=== PATIENT | female | born 1990 | race Caucasian/White ===

== ENCOUNTER 2018-05-17 22:05 | Inpatient (IN) ==
[2018-05-18] MEDS ORDERED: Morphine Sulfate Inj 2 MG/ML Vial IV.PUSH PRN (00:10)
[2018-05-18] MEDS ORDERED: Acetaminophen 325 MG Tablet PO PRN (00:11)
[2018-05-18] MEDS ORDERED: Temazepam 15 MG Capsule PO PRN (00:11)
[2018-05-18] MEDS ORDERED: Bisacodyl 10 MG Supp RECTAL PRN (00:11)
[2018-05-18] MEDS ORDERED: Morphine Inj 4 MG/ML Vial IV.PUSH PRN (00:17)
[2018-05-18] MEDS: Sod Chloride 0.9% Inj 1,000 ML IV.CONT SCH ×2 (00:51→17:51)
[2018-05-18] MEDS: Morphine Inj 4 MG/ML Vial IV.PUSH PRN ×3 (04:26→13:00)
[2018-05-18] MEDS ORDERED: Metoprolol Tartrate 25 MG Tablet PO SCH (04:45)
[2018-05-18] MEDS ORDERED: Chlorhexidine Gluconate 2% 1 Pack (2 Cloths) TOPICAL SCH (04:45)
--- NOTE | 2018-05-18 04:52 | P.HP ---
History of Present Illness Service: [facility] Primary Care Physician: UNKNOWN Chief Complaint: Left foot/ankle pain History of Present Illness: 28-year-old female with no significant past medical history presents the emergency department for evaluation of left foot/ankle pain status post a fall. The patient reports she was walking when she slipped in the mud twisting her foot and ankle. She denies any other symptoms. Complains of pain in her foot that is only partially relieved with her current pain medication regimen. Inpatient Certification: I certify that the inpatient services were ordered in accordance with Medicare regulations governing the order. This includes certification that hospital inpatient services are reasonable and necessary and in the case of services not specified as inpatient-only under 42 CFR 419.22(n), that they are appropriately provided as inpatient services in accordance to with the 2-midnight benchmark under 43 CFR 412.3(e) Estimated Total Length of Stay (Days): 2 Plans for Post Hospital Care: Not yet determined Review of Systems Denies fever or chills Denies blurry vision, otorrhea, rhinorrhea Denies sore throat and cough No chest pain, palpitations No shortness of breath or wheezing No abdominal pain Denies constipation/diarrhea/nausea/vomiting Denies muscle pain Denies focal weakness No rashes PMFSH - History History Provided By: Patient - Medical History Medical History: Medical History (Last Reviewed 05/18/18 @ 02:08 by Venancio Narayan) Patient denies medical problems - Surgical History Surgical History: Surgical History (Last Reviewed 05/17/18 @ 19:05 by Gail Dumont MD) No history of previous surgery - Tobacco History Second Hand Smoke Exposure: Yes Tobacco Use In Past 30 Days: Yes Smoking Status: Current every day smoker Tobacco Type: Cigarettes - Alcohol History How Often Do You Have a Drink Containing Alcohol: 2 to 4 times a month - Substance Use History Substance History: No History of Abuse - Immunization History Tetanus Immunization: Unsure Hx Influenza Vaccine This Season: Yes Medications and Allergies Active Medications: Active Medications Acetaminophen (Tylenol) 650 mg PO Q4H PRN PRN Reason: Temp > 100.4 Al Hydroxide/Mg Hydroxide (Milk Of Magnesia Liq) 30 ml PO Q12H PRN PRN Reason: Mild Constipation Bisacodyl (Dulcolax Supp) 10 mg RECTAL DAILY PRN PRN Reason: SEVERE CONSITIPATION Chlorhexidine Gluconate (Chlorhexidine 2% Cloth) 3 pack TOPICAL SIX PACK PACKER [facility] Stop: 05/21/18 04:45 Sodium Chloride (Ns Inj) 1,000 mls @ 70 mls/hr IV.CONT .[id number] [facility] Last Admin: 05/18/18 00:51 Dose: 70 mls/hr Lactated Ringer's (Lr 1000 Ml Inj) 1,000 mls @ 30 mls/hr IV.SIG .Q24H [facility] Stop: 05/21/18 04:45 Sodium Chloride (Ns Inj) 500 mls @ 30 mls/hr IV.SIG .Q10H [facility] Stop: 05/21/18 04:45 Lactulose (Lactulose Liq) 30 ml PO DAILY PRN PRN Reason: SEVERE CONSITIPATION Metoprolol Tartrate (Lopressor) 25 mg PO SIX PACK PACKER [facility] Stop: 05/21/18 04:45 Miscellaneous Information ([facility] Nursing Information) 1 each OTHER ONCE ONE Stop: 05/18/18 04:46 Morphine Sulfate (Morphine Inj) 4 mg IV.PUSH Q4H PRN PRN Reason: pain 6-10 Last Admin: 05/18/18 04:26 Dose: 4 mg Ondansetron HCl (Zofran Inj) 4 mg IV.PUSH Q6H PRN PRN Reason: NAUSEA OR VOMITING Povidone Iodine (Betadine 5% Antisepsis Kit) 1 applicatio EACH NARE SIX PACK PACKER [facility] Stop: 05/21/18 04:45 Senna/Docusate Sodium (Maribeth-Colace) 1 tab PO BID [facility] Sennosides (Senokot) 17.2 mg PO Q12H PRN PRN Reason: Moderate Constipation Temazepam (Restoril) 15 mg PO HS PRN PRN Reason: INSOMNIA Allergies Allergy/AdvReac Type Severity Reaction Status Date / Time No Known Allergies Allergy Verified 05/17/18 17:08 Home Medications Medication Instructions Recorded Confirmed Type No Known Home Medications 05/17/18 05/17/18 History Exam Vital signs: Vital Signs 05/17/18 23:00 05/18/18 00:40 05/18/18 04:30 Temperature 98.3 F 99.6 F Pulse Rate 100 H 107 H Respiratory Rate 17 17 18 Blood Pressure 142/77 H 138/78 Pulse Oximetry 98 96 Intake & Output 05/17/18 05/17/18 05/18/18 06:59 18:59 06:59 Weight 79.379 kg Other: Weight On Admission 79.379 kg Narrative: Gen.: No acute distress Head: Normocephalic. Atraumatic. EENT: Pupils equal round and reactive to light. Nose without drainage. Airway intact. Throat without injection. Cardiovascular: Regular rate and rhythm. No murmurs, rubs or gallops. Respiratory: Lungs clear to auscultation bilaterally. No wheezes or rhonchi. Abdomen: Soft, nontender, nondistended. No peritoneal signs. Musculoskeletal: Left ankle and lower extremity immobilized and wrapped with full movement of all 5 digits. Neurovascularly intact. Skin: No obvious rashes or erythema. Neuro: Sensory and motor grossly intact. Cranial nerves II through XII grossly intact. Psych: Appropriate mood and affect Caprini VTE Risk Assessment Caprini VTE Risk Assessment: No/Low Risk (score <= 1) Caprini Risk Assessment Model: Point Value = 1 Point Value = 2 Point Value = 3 Point Value = 5 Age 41-60 Minor surgery BMI > 25 kg/m2 Swollen legs Varicose veins or History of unexplained or recurrent spontaneous Oral contraceptives or hormone replacement Sepsis (< 1 month) Serious lung disease, including pneumonia (< 1 month) Abnormal pulmonary function Acute myocardial infarction Congestive heart failure (< 1 month) History of inflammatory bowel disease Medical patient at bed rest Age 61-74 Arthroscopic surgery Major open surgery (> 45 min) Laparoscopic surgery (> 45 min) Malignancy Confined to bed (> 72 hours) Immobilizing plaster cast Central venous access Age >= 75 History of VTE Family history of VTE Factor V Leiden Prothrombin [id number] Lupus anticoagulant Anticardiolipin antibodies Elevated serum homocysteine Heparin-induced thrombocytopenia Other congenital or acquired thrombophilia Stroke (< 1 month) Elective arthroplasty Hip, pelvis, or leg fracture Acute spinal cord injury (< 1 month) Prophylaxis Regimen: Total Risk Factor Score Risk Level Prophylaxis Regimen 0-1 Low Early ambulation 2 Moderate Order ONE of the following: *Sequential Compression Device (SCD) *Heparin 5000 units SQ BID 3-4 Higher Order ONE of the following medications: *Heparin 5000 units SQ TID *Enoxaparin/Lovenox 40 mg SQ daily (WT < 150 kg, CrCl > 30 mL/min) *Enoxaparin/Lovenox 30 mg SQ daily (WT < 150 kg, CrCl > 10-29 mL/min) *Enoxaparin/Lovenox 30 mg SQ BID (WT < 150 kg, CrCl > 30 mL/min) AND/OR *Sequential Compression Device (SCD) 5 or more Highest Order ONE of the following medications: *Heparin 5000 units SQ TID (Preferred with Epidurals) *Enoxaparin/Lovenox 40 mg SQ daily (WT < 150 kg, CrCl > 30 mL/min) *Enoxaparin/Lovenox 30 mg SQ daily (WT < 150 kg, CrCl > 10-29 mL/min) *Enoxaparin/Lovenox 30 mg SQ BID (WT < 150 kg, CrCl > 30 mL/min) AND *Sequential Compression Device (SCD) Assessment and Plan - Plan Assessment/plan: 1. Ankle fracture Left ankle x-ray shows a mildly displaced fracture of the distal fibula along the ankle joint with mild medial subluxation of the tibia plafond. Lateral view also demonstrates a small avulsion fracture posteriorly at the level of the ankle joint. Podiatry consulted, appreciate assistance N.p.o. Increase morphine for better pain control Coag profile pending in anticipation of operative intervention FEN N.p.o. Electrolytes: Monitor and replete as needed NS at 70 cc/hour
[2018-05-18] MEDS ORDERED: Sodium Chlor 0.9% Inj 500 ML IV.SIG SCH (05:00)
[2018-05-18 07:31] LABS: Activated Partial Thrombo Time 23.3 sec (24.3-30.1); Prothrombin Time 10.4 sec (9.8-11.6)
[2018-05-18] MEDS: Senna/Docusate Sodium 8.6/50 MG Tablet PO SCH ×2 (08:16→23:46)
[2018-05-18] MEDS ORDERED: Lidocaine PF 1% Inj 5 ML Syringe INFILTRATN ONE (12:00)
--- NOTE | 2018-05-18 13:06 | P.CON ---
History of Present Illness Service: Foot and Ankle Surgery/Podiatry Consult date: 05/18/18 Requesting Physician: Janell Caba Reason for Consult: Left Ankle Fracture Primary Care Provider: UNKNOWN Chief Complaint: Left foot/ankle pain History of Present Illness: Foot and Ankle Surgery/podiatry consulted for this 28 year old female who is s/ p fall after slipping in a puddle of mud. Patient states slipping in the mid caused her foot and ankle to twist and she felt a pop. She denies any N,V,F,Ch. She reports pain control with medications however continued pain when the medication wears off. She reports no PMHx. She originally presented to ED in [place] and was transferred to [facility] for surgical intervention. Review of Systems Constitutional: Denies chills, Denies fever(s) Eyes: Denies blind spots Ears, Nose, Mouth, and Throat: Denies abnormal hearing Cardiovascular: Denies chest pain, Denies shortness of breath Respiratory: Denies shortness of breath Gastrointestinal: Denies abdominal pain PMFSH - History History Provided By: Patient - Medical History Medical History: Medical History (Last Reviewed 05/18/18 @ 13:09 by Mirna Beach DPM) Patient denies medical problems - Surgical History Surgical History: Surgical History (Last Reviewed 05/18/18 @ 13:09 by Mirna Beach DPM) No history of previous surgery - Tobacco History Second Hand Smoke Exposure: Yes Tobacco Use In Past 30 Days: Yes Smoking Status: Current every day smoker Tobacco Type: Cigarettes - Alcohol History How Often Do You Have a Drink Containing Alcohol: 2 to 4 times a month - Substance Use History Substance History: No History of Abuse - Immunization History Tetanus Immunization: Unsure Hx Influenza Vaccine This Season: Yes Medications and Allergies Active Medications: Active Medications Acetaminophen (Tylenol) 650 mg PO Q4H PRN PRN Reason: Temp > 100.4 Al Hydroxide/Mg Hydroxide (Milk Of Magnesia Liq) 30 ml PO Q12H PRN PRN Reason: Mild Constipation Bisacodyl (Dulcolax Supp) 10 mg RECTAL DAILY PRN PRN Reason: SEVERE CONSITIPATION Chlorhexidine Gluconate (Chlorhexidine 2% Cloth) 3 pack TOPICAL [employer] [facility] Stop: 05/21/18 04:45 Sodium Chloride (Ns Inj) 1,000 mls @ 70 mls/hr IV.CONT .[id number] [facility] Last Admin: 05/18/18 00:51 Dose: 70 mls/hr Lactated Ringer's (Lr 1000 Ml Inj) 1,000 mls @ 30 mls/hr IV.SIG .Q24H [facility] Stop: 05/21/18 04:45 Last Admin: 05/18/18 06:25 Dose: 30 mls/hr Sodium Chloride (Ns Inj) 500 mls @ 30 mls/hr IV.SIG .Q10H [facility] Stop: 05/21/18 04:45 Lactulose (Lactulose Liq) 30 ml PO DAILY PRN PRN Reason: SEVERE CONSITIPATION Metoprolol Tartrate (Lopressor) 25 mg PO [employer] Stop: 05/21/18 04:45 Morphine Sulfate (Morphine Inj) 4 mg IV.PUSH Q4H PRN PRN Reason: pain 6-10 Last Admin: 05/18/18 13:00 Dose: 4 mg Ondansetron HCl (Zofran Inj) 4 mg IV.PUSH Q6H PRN PRN Reason: NAUSEA OR VOMITING Last Admin: 05/18/18 10:09 Dose: 4 mg Povidone Iodine (Betadine 5% Antisepsis Kit) 1 applicatio EACH NARE [employer] Stop: 05/21/18 04:45 Senna/Docusate Sodium (Maribeth-Colace) 1 tab PO BID [facility] Last Admin: 05/18/18 08:16 Dose: Not Given Sennosides (Senokot) 17.2 mg PO Q12H PRN PRN Reason: Moderate Constipation Temazepam (Restoril) 15 mg PO HS PRN PRN Reason: INSOMNIA Allergies Allergy/AdvReac Type Severity Reaction Status Date / Time No Known Allergies Allergy Verified 05/17/18 17:08 Home Medications Medication Instructions Recorded Confirmed Type No Known Home Medications 05/17/18 05/18/18 History Physical Exam Vital signs: Vital Signs 05/17/18 23:00 05/18/18 00:40 05/18/18 04:30 Temperature 98.3 F 99.6 F Pulse Rate 100 H 107 H Respiratory Rate 17 17 18 Blood Pressure 142/77 H 138/78 Pulse Oximetry 98 96 05/18/18 04:45 05/18/18 08:00 05/18/18 12:19 Temperature 98.8 F 98.7 F 97.8 F Pulse Rate 102 H 99 H 88 Respiratory Rate 18 18 17 Blood Pressure 130/73 132/77 137/85 Pulse Oximetry 94 L 97 93 L Intake & Output 05/17/18 05/18/18 05/18/18 18:59 06:59 18:59 Intake Total 240 / 240 Output Total Balance 239 / 239 Weight 79.3 kg Intake: Oral 240 / 240 Output: Urine Other: Date of Last Bowel Movement 05/16/18 Weight On Admission 79.379 kg Narrative: LLE Physical Exam: Vasc: DP 2/4, palpable. FIGURE MODEL under 3 secs and WNL. Edema noted to LLE. Neuro: Gross sensation intact. No reported loss of sensation to LLE. Derm: No open lesions to left foot or ankle. Skin lines present with normal temperature and turgor noted. MSK: Pain to palpation globally to left ankle. Active/passive DF of digits x5 of left foot. - Constitutional no acute distress - Routine HEENT Exam Head: Present: normocephalic Eye: Present: PERRL ENT: Present: mucous membranes moist - Routine Neck Exam Absent: JVD - Routine Respiratory Exam Absent: accessory muscle use - Routine Extremities Exam Present: edema, full ROM, pulses intact. Absent: calf tenderness - Routine Skin Exam Present: intact. Absent: cyanosis, erythema - Routine Neurological Exam Present: alert, oriented X3, moving all extremities Assessment and Plan - Plan 28 year old with left ankle fracture To OR today for left ankle fracture repair Consent to be obtained for left ankle fracture ORIF Patient understands all risks, benefits, alternatives, complications with moving forward with Left Ankle ORIF She would like to proceed with surgical intervention as soon as possible She understands she will be non weightbearing for 6-8 weeks Please anticipate DC with walker
[2018-05-18] MEDS ORDERED: ceFAZolin 2 GM Premix Inj 2 GM/50 ML PIGGYBACK IV.SIG ONE (13:47)
[2018-05-18 13:51] LABS: Baso # (Auto) 0.1 th/mm3 (0.0-0.2); Baso % (Auto) 0.7 % (0.0-2.0); Eos # (Auto) 0.3 th/mm3 (0.0-0.4); Eos % (Auto) 2.1 % (0.0-4.0); Hematocrit 36.3 % (35.0-46.0); Hemoglobin 12.1 gm/dL (11.6-15.3); Lymph # (Auto) 3.8 th/mm3 (1.0-4.8); Lymph % (Auto) 28.6 % (9.0-44.0); Mean Corpuscular HGB Conc 33.2 % (32.0-36.0); Mean Corpuscular Hemoglobin 27.4 pg (27.0-34.0); Mean Corpuscular Volume 82.4 fL (80.0-100.0); Mean Platelet Volume 9.4 fL (7.0-11.0); Mono # (Auto) 0.8 th/mm3 (0.0-0.9); Mono % (Auto) 5.9 % (0.0-8.0); Neut # (Auto) 8.4 th/mm3 (1.8-7.7); Neut % (Auto) 62.7 % (16.0-70.0); Platelet Count 267 th/mm3 (150-450); Red Cell Distribution Width 12.9 % (11.6-17.2); White Blood Count 13.4 th/mm3 (4.0-11.0)
[2018-05-18 14:18] LABS: Anion Gap 7 meq/L (5-15); Blood Urea Nitrogen 9 mg/dL (7-18); Calcium 8.7 mg/dL (8.5-10.1); Carbon Dioxide 25.4 meq/L (21.0-32.0); Chloride 109 meq/L (98-107); Glomerular Filtration Rate Greater Than 89 mL/min (>89); Glucose,Random 82 mg/dL (74-106); Sodium 141 meq/L (136-145)
[2018-05-18] MEDS ORDERED: Bupivacaine/Epinephrine PF Inj 0.5% 30 ML Vial ONE (14:58)
[2018-05-18] MEDS ORDERED: Bupivacaine PF 0.5% Inj 30 ML Vial ONE (15:01)
[2018-05-18] MEDS ORDERED: Post-op Orders (for Pharmacy) OTHER STA (17:21)
--- NOTE | 2018-05-18 17:29 | P.PCN ---
Date of procedure: 05/18/18 Pre-op diagnosis: Left ankle fracture Post-op diagnosis: same Procedure: Left Ankle Open Reduction Internal Fixation Anesthesia: ARAVIND Surgeon: Mirna Beahc Estimated blood loss (mL): 5 Pathology: none sent Condition: stable Disposition: PACU
[2018-05-18] MEDS ORDERED: fentaNYL Citrate Inj 100 MCG/2 ML Ampul ONE (17:33)
--- NOTE | 2018-05-18 17:39 | XR ---
EXAM DATE: 05/18/2018 5:30 PM EDT AGE/SEX: 28 years / Female INDICATIONS: Post op Ankle ORIF. CLINICAL DATA: This is the patient's initial encounter. Patient reports that signs and symptoms have been present for 1 day and indicates a pain score of Nonresponsive. MEDICAL/SURGICAL HISTORY: None. None. COMPARISON: No prior exams available for comparison. FINDINGS: There is plate and screw fixation of the distal fibula. Normal alignment. Ankle joint intact. CONCLUSION: Fixation as above. Electronically signed by: Keith Hood MD 05/18/2018 5:38 PM EDT
[2018-05-18] MEDS ORDERED: *morphine SULFATE 10 MG/ML PERIprocedure ONLY ONE (17:54)
[2018-05-19] MEDS: Morphine Inj 4 MG/ML Vial IV.PUSH PRN (03:18)
[2018-05-19] MEDS ORDERED: Enoxaparin Inj 30 MG/0.3 ML Syringe SQ SCH (05:30)
[2018-05-19] MEDS: Sod Chloride 0.9% Inj 1,000 ML IV.CONT SCH ×2 (07:09→19:09)
[2018-05-19 08:49] LABS: Baso % (Auto) 0.2 % (0.0-2.0); Hematocrit 36.3 % (35.0-46.0); Hemoglobin 11.8 gm/dL (11.6-15.3); Mean Corpuscular HGB Conc 32.4 % (32.0-36.0); Mean Corpuscular Hemoglobin 27.1 pg (27.0-34.0); Mean Corpuscular Volume 83.5 fL (80.0-100.0); Mean Platelet Volume 10.2 fL (7.0-11.0); Mono # (Auto) 0.7 th/mm3 (0.0-0.9); Neut # (Auto) 15.2 th/mm3 (1.8-7.7); Neut % (Auto) 84.8 % (16.0-70.0); Platelet Count 267 th/mm3 (150-450); Red Blood Count 4.35 mil/mm3 (4.00-5.30); Red Cell Distribution Width 13.2 % (11.6-17.2); White Blood Count 17.9 th/mm3 (4.0-11.0)
[2018-05-19 09:06] LABS: Anion Gap 11 meq/L (5-15); Blood Urea Nitrogen 8 mg/dL (7-18); Calcium 9.2 mg/dL (8.5-10.1); Carbon Dioxide 23.7 meq/L (21.0-32.0); Chloride 104 meq/L (98-107); Glomerular Filtration Rate Greater Than 89 mL/min (>89); Glucose,Random 97 mg/dL (74-106); Sodium 139 meq/L (136-145)
[2018-05-19] MEDS: Senna/Docusate Sodium 8.6/50 MG Tablet PO SCH ×2 (09:12→20:38)
--- NOTE | 2018-05-19 11:10 | P.PN ---
Subjective Interval history: Follow-up visit left ankle fracture, status post Left Ankle Open Reduction Internal Fixation by Dr. García. Patient seen and examined today laying in bed. Reports she is doing well. States pain is manageable with ice and pain medication. States that she wanted to move around and able to use the walker to go to the bathroom without weightbearing on her left lower extremity. Physical therapy has not seen her yet. No acute issues overnight. Denies SOB/ dyspnea. Denies chest pain, palpitations, headaches, dizziness. Denies fevers, chills, n/v/d. Denies dysuria. Physical Exam Vital signs: Vital Signs 05/18/18 12:19 05/18/18 17:18 05/18/18 17:30 Temperature 97.8 F 97.8 F Pulse Rate 88 120 H 116 H Respiratory Rate 17 15 16 Blood Pressure 137/85 117/67 125/73 Pulse Oximetry 93 L 92 L 96 05/18/18 17:45 05/18/18 18:00 05/18/18 20:05 Temperature 97.7 F Pulse Rate 100 H 101 H 85 Respiratory Rate 10 L 12 16 Blood Pressure 126/74 124/74 115/70 Pulse Oximetry 97 98 95 05/19/18 00:00 05/19/18 04:00 05/19/18 07:54 Temperature 97.9 F 98.0 F 97.9 F Pulse Rate 74 91 H 79 Respiratory Rate 16 16 14 Blood Pressure 138/75 103/61 118/70 Pulse Oximetry 98 94 L 93 L 05/19/18 09:42 Temperature Pulse Rate Respiratory Rate 16 Blood Pressure Pulse Oximetry Intake & Output 05/18/18 05/19/18 05/19/18 18:59 06:59 18:59 Intake Total 2200 / 2200 1341 / 1341 189 / 189 Output Total 50 / 50 Balance 2150 / 2150 1341 / 1341 189 / 189 Intake: IV 1000 / 1000 861 / 861 189 / 189 NS Inj 1,000 ML @ 70 mls/hr IV. 1000 / 1000 861 / 861 139 / 139 CONT .[id number] [facility] Rx#:[id number] Oral 480 / 480 Anesthesia Amount 1200 / 1200 Output: Estimated Blood Loss 50 / 50 Other: # Voids 2 Date of Last Bowel Movement 05/16/18 05/16/18 # Bowel Movements 0 Narrative: GENERAL: This is a well-nourished, well-developed patient, in no apparent distress. SKIN: Warm and dry. HEENT: Normocephalic. Pupils equal round and reactive. Nose without bleeding. Airway patent. NECK: Trachea midline. No JVD. Supple. CARDIOVASCULAR: Regular rate and rhythm without murmurs, gallops, or rubs. RESPIRATORY: Clear to auscultation. Breath sounds equal bilaterally. No wheezes , rales, or rhonchi. GASTROINTESTINAL: Abdomen soft, non-tender, nondistended. Bowel Sounds normoactive x4. MUSCULOSKELETAL: Extremities without clubbing, cyanosis. Left lower extremity trace edema. Left toes able to move, warm, palpable pulse. NEUROLOGICAL: Awake and alert. Oriented to time, place, person. No focal neuro deficit. Moves all extremities. Normal speech. Results - Labs CBC & Chem 7: 05/19/18 08:08 05/19/18 08:08 Laboratory Results - last 24 hr 05/18/18 05/18/18 05/18/18 13:42 13:42 13:42 WBC 13.4 H RBC 4.40 Hgb 12.1 Hct 36.3 MCV 82.4 MCH 27.4 MCHC 33.2 RDW 12.9 Plt Count 267 MPV 9.4 Neut % (Auto) 62.7 Lymph % (Auto) 28.6 [place] % (Auto) 5.9 Eos % (Auto) 2.1 Baso % (Auto) 0.7 Neut # (Auto) 8.4 H Lymph # (Auto) 3.8 [place] # (Auto) 0.8 Eos # (Auto) 0.3 Baso # (Auto) 0.1 WBC Differential . Differential Comment Auto diff final Sodium 141 Potassium 4.0 Chloride 109 H Carbon Dioxide 25.4 Anion Gap 7 BUN 9 Creatinine 0.59 Estimated GFR Greater than 89 Random Glucose 82 Calcium 8.7 D Beta HCG, Qual Less than 1.0 Beta HCG, Quant Cancelled 05/19/18 05/19/18 08:08 08:08 WBC 17.9 H RBC 4.35 Hgb 11.8 Hct 36.3 MCV 83.5 MCH 27.1 MCHC 32.4 RDW 13.2 Plt Count 267 MPV 10.2 Neut % (Auto) 84.8 H Lymph % (Auto) 11.0 [place] % (Auto) 4.0 Eos % (Auto) 0.0 Baso % (Auto) 0.2 Neut # (Auto) 15.2 H Lymph # (Auto) 2.0 [place] # (Auto) 0.7 Eos # (Auto) 0.0 Baso # (Auto) 0.0 WBC Differential . Differential Comment Auto diff final Sodium 139 Potassium 4.0 Chloride 104 Carbon Dioxide 23.7 Anion Gap 11 BUN 8 Creatinine 0.60 Estimated GFR Greater than 89 Random Glucose 97 Calcium 9.2 Beta HCG, Qual Beta HCG, Quant - Imaging Impressions Ankle X-Ray 05/18/18 00:00 CONCLUSION: Fixation as above. Assessment and Plan - Plan 28-year-old female with no significant past medical history presents the emergency department for evaluation of left foot/ankle pain status post a fall. Left Ankle Open Reduction Internal Fixation, 05/18/18, by Dr. Beach Left ankle fracture -Pain management postop -PT eval and treat -Pending postop evaluation of Dr. Beach. Plan to DC home today when cleared by podiatry DVT prop Lovenox Discharge patient to home Condition on discharge: Improved Regular Diet as tolerated Ad More activity nonweightbearing left lower extremity, walker use Rx written: Placed in the discharge plan Follow-up with primary care physician follow-up 3-5 days Follow-up podiatry 1-2 weeks Code Status: Full Code Discussed Condition With: Patient, nursing Discharge Planning: Plan to DC home today when cleared by podiatry.
--- NOTE | 2018-05-19 15:25 | P.DS ---
Date of admission: 05/17/18 23:52 Primary care physician: UNKNOWN Attending physician on discharge: Charlie Sheth Anticipated date of discharge: 05/19/18 Brief History from admission: 28-year-old female with no significant past medical history presents the emergency department for evaluation of left foot/ankle pain status post a fall. The patient reports she was walking when she slipped in the mud twisting her foot and ankle. She denies any other symptoms. Complains of pain in her foot that is only partially relieved with her current pain medication regimen. DS: Diagnosis - Discharge Diagnosis (1) Closed left ankle fracture Status: Acute DS: Medications - Discharge Medications Prescriptions: naproxen [Naprosyn] 500 mg PO TID PRN #24 tab PRN Reason: PAIN and Inflammation oxycodone-acetaminophen 1 tab PO Q4H PRN #21 tab PRN Reason: Acute Pain DS: Summary - Time Spent with Patient Total time spent providing and/or coordinating discharge services: - Quality: VTE Deep Vein Thrombosis/Pulmonary Embolism Present on Admission: No Exam Vital signs: Vital Signs 05/18/18 17:18 05/18/18 17:30 05/18/18 17:45 Temperature 97.8 F Pulse Rate 120 H 116 H 100 H Respiratory Rate 15 16 10 L Blood Pressure 117/67 125/73 126/74 Pulse Oximetry 92 L 96 97 05/18/18 18:00 05/18/18 20:05 05/19/18 00:00 Temperature 97.7 F 97.9 F Pulse Rate 101 H 85 74 Respiratory Rate 12 16 16 Blood Pressure 124/74 115/70 138/75 Pulse Oximetry 98 95 98 05/19/18 04:00 05/19/18 07:54 05/19/18 09:42 Temperature 98.0 F 97.9 F Pulse Rate 91 H 79 Respiratory Rate 16 14 16 Blood Pressure 103/61 118/70 Pulse Oximetry 94 L 93 L 05/19/18 12:00 Temperature 98.9 F Pulse Rate 84 Respiratory Rate 18 Blood Pressure 115/65 Pulse Oximetry 99 Intake & Output 05/18/18 05/19/18 05/19/18 18:59 06:59 18:59 Intake Total 2200 / 2200 1341 / 1341 189 / 189 Output Total 50 / 50 Balance 2150 / 2150 1341 / 1341 189 / 189 Intake: IV 1000 / 1000 861 / 861 189 / 189 NS Inj 1,000 ML @ 70 mls/hr IV. 1000 / 1000 861 / 861 139 / 139 CONT .[id number] [facility] Rx#:[id number] Oral 480 / 480 Anesthesia Amount 1200 / 1200 Output: Estimated Blood Loss 50 / 50 Other: # Voids 2 Date of Last Bowel Movement 05/16/18 05/16/18 # Bowel Movements 0 Results Labs on day of discharge: Labs from last 24 hours 05/19/18 05/19/18 08:08 08:08 WBC 17.9 H RBC 4.35 Hgb 11.8 Hct 36.3 MCV 83.5 MCH 27.1 MCHC 32.4 RDW 13.2 Plt Count 267 MPV 10.2 Neut % (Auto) 84.8 H Lymph % (Auto) 11.0 [place] % (Auto) 4.0 Eos % (Auto) 0.0 Baso % (Auto) 0.2 Neut # (Auto) 15.2 H Lymph # (Auto) 2.0 [place] # (Auto) 0.7 Eos # (Auto) 0.0 Baso # (Auto) 0.0 WBC Differential . Differential Comment Auto diff final Sodium 139 Potassium 4.0 Chloride 104 Carbon Dioxide 23.7 Anion Gap 11 BUN 8 Creatinine 0.60 Estimated GFR Greater than 89 Random Glucose 97 Calcium 9.2 - Impressions ITS Impressions Ankle X-Ray 05/18/18 00:00 CONCLUSION: Fixation as above. Discharge Plan - Discharge Disposition Patient Disposition: 01 Discharge Home - Discharge Condition Condition: Good - Physicians Team Primary Care Provider: UNKNOWN, Attending Provider: Charlie Sheth Other Providers: Mirna Beach DPM - Rxs /Orders / Referrals /Forms Prescriptions: New naproxen [Naprosyn] 500 mg Tablet 500 mg PO TID PRN (Reason: PAIN and Inflammation) Qty: 24 RF: 0 oxycodone-acetaminophen 5-325 mg Tablet 1 tab PO Q4H PRN (Reason: Acute Pain) Qty: 21 RF: 0 No Action No Known Home Medications Ambulatory Orders / Order Sets / DME: Walker With Front Wheels (1 each) (Routine) Location: Determined by Patient Ordered By: Charline Story Referrals: UNKNOWN, [Primary Care Provider] - See Instructions - Post Discharge Care Plan Care Plan Goals: Your Health Problems: Goals to Promote Your Health: * To prevent worsening of your condition * To maintain your health at the optimal level Directions to Meet Your Goals: * Take your medications as prescribed * Follow your dietary instruction * Follow activity as directed * Keep your appointments as scheduled * Take your immunizations and boosters as scheduled * If your symptoms worsen call your PCP * If no PCP go to Urgent Care or Emergency Room Smoking is dangerous to your health. Avoid second hand smoke. You may reach the 24-hour crisis hotline for domestic abuse at .
--- NOTE | 2018-05-19 23:26 | P.PNPOD ---
Subjective Interval history: s/p ORIF left ankle fracture, Dr Beach 05/18/18 Physical Exam Vital signs: Vital Signs 05/19/18 00:00 05/19/18 04:00 05/19/18 07:54 Temperature 97.9 F 98.0 F 97.9 F Pulse Rate 74 91 H 79 Respiratory Rate 16 16 14 Blood Pressure 138/75 103/61 118/70 Pulse Oximetry 98 94 L 93 L 05/19/18 09:42 05/19/18 12:00 05/19/18 14:02 Temperature 98.9 F Pulse Rate 84 Respiratory Rate 16 18 16 Blood Pressure 115/65 Pulse Oximetry 99 05/19/18 16:00 05/19/18 19:28 05/19/18 22:52 Temperature 98.2 F 97.5 F L Pulse Rate 77 83 Respiratory Rate 20 18 18 Blood Pressure 140/71 144/76 H Pulse Oximetry 96 97 Intake & Output 05/19/18 05/19/18 05/20/18 06:59 18:59 06:59 Intake Total 1341 / 1341 2389 / 2389 Balance 1341 / 1341 2389 / 2389 Intake: IV 861 / 861 1189 / 1189 NS Inj 1,000 ML @ 70 mls/hr IV. 861 / 861 139 / 139 CONT .[id number] [facility] Rx#:[id number] LR 1000 mL Inj 1,000 ML @ 30 1000 / 1000 mls/hr IV.SIG .Q24H [facility] Rx#: [id number] Oral 480 / 480 1200 / 1200 Other: # Voids 2 3 Date of Last Bowel Movement 05/16/18 # Bowel Movements 0 Narrative: Neurovascularly intact left lower extremity. Brisk capillary refill to digits. Splint clean, dry, intact left lower extremity Medications and Allergies Active Medications: Active Medications Acetaminophen (Tylenol) 650 mg PO Q4H PRN PRN Reason: Temp > 100.4 Al Hydroxide/Mg Hydroxide (Milk Of Magnesia Liq) 30 ml PO Q12H PRN PRN Reason: Mild Constipation Bisacodyl (Dulcolax Supp) 10 mg RECTAL DAILY PRN PRN Reason: SEVERE CONSITIPATION Chlorhexidine Gluconate (Chlorhexidine 2% Cloth) 3 pack TOPICAL [employer] [facility] Stop: 05/21/18 04:45 Diphenhydramine HCl (Benadryl) 25 mg PO Q6H PRN PRN Reason: ITCHING Enoxaparin Sodium (Lovenox Inj) 30 mg SQ Q24H [facility] Last Admin: 05/19/18 04:58 Dose: 30 mg Sodium Chloride (Ns Inj) 1,000 mls @ 70 mls/hr IV.CONT .[id number] [facility] Last Admin: 05/19/18 19:09 Dose: Not Given Lactated Ringer's (Lr 1000 Ml Inj) 1,000 mls @ 30 mls/hr IV.SIG .Q24H [facility] Stop: 05/21/18 04:45 Last Infusion: 05/19/18 16:06 Dose: Infused Sodium Chloride (Ns Inj) 500 mls @ 30 mls/hr IV.SIG .Q10H [facility] Stop: 05/21/18 04:45 Lactulose (Lactulose Liq) 30 ml PO DAILY PRN PRN Reason: SEVERE CONSITIPATION Metoprolol Tartrate (Lopressor) 25 mg PO [employer] [facility] Stop: 05/21/18 04:45 Morphine Sulfate (Morphine Inj) 4 mg IV.PUSH Q4H PRN PRN Reason: pain 6-10 Last Admin: 05/19/18 03:18 Dose: 4 mg Ondansetron HCl (Zofran Inj) 4 mg IV.PUSH Q6H PRN PRN Reason: NAUSEA OR VOMITING Last Admin: 05/19/18 03:18 Dose: 4 mg Oxycodone/Acetaminophen (Percocet 5/325 Mg) 1 tab PO Q4H PRN PRN Reason: PAIN SCALE 6 TO 10 Last Admin: 05/19/18 22:05 Dose: 1 tab Povidone Iodine (Betadine 5% Antisepsis Kit) 1 applicatio EACH NARE [employer] [facility] Stop: 05/21/18 04:45 Senna/Docusate Sodium (Maribeth-Colace) 1 tab PO BID [facility] Last Admin: 05/19/18 20:38 Dose: Not Given Sennosides (Senokot) 17.2 mg PO Q12H PRN PRN Reason: Moderate Constipation Temazepam (Restoril) 15 mg PO HS PRN PRN Reason: INSOMNIA Allergies Allergy/AdvReac Type Severity Reaction Status Date / Time No Known Allergies Allergy Verified 05/17/18 17:08 Home Medications Medication Instructions Recorded Confirmed Type No Known Home Medications 05/17/18 05/18/18 History Results - Labs CBC & Chem 7: 05/19/18 08:08 05/19/18 08:08 Laboratory Results - last 24 hr 05/19/18 05/19/18 08:08 08:08 WBC 17.9 H RBC 4.35 Hgb 11.8 Hct 36.3 MCV 83.5 MCH 27.1 MCHC 32.4 RDW 13.2 Plt Count 267 MPV 10.2 Neut % (Auto) 84.8 H Lymph % (Auto) 11.0 [place] % (Auto) 4.0 Eos % (Auto) 0.0 Baso % (Auto) 0.2 Neut # (Auto) 15.2 H Lymph # (Auto) 2.0 [place] # (Auto) 0.7 Eos # (Auto) 0.0 Baso # (Auto) 0.0 WBC Differential . Differential Comment Auto diff final Sodium 139 Potassium 4.0 Chloride 104 Carbon Dioxide 23.7 Anion Gap 11 BUN 8 Creatinine 0.60 Estimated GFR Greater than 89 Random Glucose 97 Calcium 9.2 Assessment and Plan - Assessment (1) Closed left ankle fracture Code(s): S82.892A - Other fracture of left lower leg, initial encounter for closed fracture Status: Acute - Plan Follow up in [facility] for dressing change in 1 week. Follow up with Dr Beach in 2 weeks to assess for suture removal Nonweightbearing left lower extremity in splint Lovenox and pain control upon discharge. Clear for discharge from podiatry standpoint (1) Closed left ankle fracture Qualifiers: Encounter type: subsequent encounter Fracture healing: with routine healing Qualified Code(s): S82.892D - Other fracture of left lower leg, subsequent encounter for closed fracture with routine healing
--- NOTE | 2018-06-25 10:31 | MP ---
cc: Mirna Beach DPM DATE OF OPERATION: 05/17/2018 SURGEON: Mirna Beach DPM [employer]ESS OPERATOR HEAD: None. PREOPERATIVE DIAGNOSIS: Left ankle fracture with syndesmotic rupture. POSTOPERATIVE DIAGNOSIS: Left ankle fracture with syndesmotic rupture. PROCEDURE PERFORMED: Left ankle open reduction and internal fixation. ANESTHESIA: General. HEMOSTASIS: Thigh tourniquet set at 250 mmHg. MATERIALS: 2-0 and 3-0 Vicryl, 3-[address] [facility] left straight lateral ortho loc 2 ankle plate with corresponding 2.7 screws; 4.0 Syndesmotic screw, and 3.5 interfragmentary screw. INJECTABLES: 20 mL of 0.5% Marcaine plain infiltrated about patient's left ankle. COMPLICATIONS: None. INDICATION FOR PROCEDURE: The patient is a 28-year-old female, who sustained a left ankle fibular fracture, status post slip and fall in the mud. The patient's ankle fracture was reduced and splinted. She has been elevating the extremity to control swelling, as well as icing. She was brought to the operating room now to reduce her fracture, and to restore her mortise congruity and stability. The risks and benefits, as well as alternatives to surgical treatment were discussed. The risks discussed included, but were not limited to bleeding, infection, nerve or vessel injury, nonunion, malunion, failure of fixation, need for further operation, painful retained hardware, as well as continued postoperative stiffness, pain, and inability to return to desired level of function, and the risks associated with general anesthetic likewise were discussed, and consent was obtained to proceed. DESCRIPTION OF PROCEDURE: The patient was taken to the operating room, and placed on the operating room table in a supine position. General endotracheal anesthesia was then induced. The left lower extremity was then prepped and draped in the usual sterile manner. 20 mL of 0.5% Marcaine plain was then infiltrated about the right ankle. The limb was exsanguinated with Esmarch and gravity, and the tourniquet was inflated to 250 mmHg. Surgical incision was marked out with a pen prior to inflation. Laterally, there were no fracture blisters present. Attention was then directed to the lateral malleolus, where an approximately 6 cm longitudinal incision was made with a 15 blade. Dissection was carried down sharply to the level of the fracture site with care to retract all vital neurovascular structures. Fracture hematoma and interposed soft tissue were cleared with a 15 blade and pituitary rongeur, and a pointed reduction clamp was utilized to facilitate reduction. The appropriate reduction was confirmed via fluoroscopy. An interfragmentary screw was then placed from anterior to posterior after overdrilling the proximal cortex. It was measured, tapped, and then a screw of appropriate length was placed. The fracture site was then stable. The C-arm was then brought in and under fluoroscopy, it was demonstrated that the fibular length had been nicely restored. A [employer] ([employer] straight fibular place Ortho loc 2 plate was then contoured to fit the lateral aspect of the fibula. It was affixed to the fibula using cortical and cancellous screws of appropriate lengths. All achieved good fixation. Fluoroscopy was once again used, and appropriate position of all the implants was verified. A hook test was utilized to test the syndesmosis, and there was noted to be syndesmotic rupture. The syndesmosis was reduced utilizing reduction clamp. At this time, a 4.0 fully threaded screw was placed from the fibula to tibia. This was not placed under compression. There was noted to be adequate fixation and stable syndesmosis. Appropriate anatomic alignment was achieved and verified under fluoroscopy with appropriate tib/fib overlap. The incision site was copiously irrigated with normal saline, 2-0 Vicryl was used to close the periosteum over the plate, 3-0 Vicryl was used to close subcutaneous tissue, and 3-0 nylon was used to close skin. A sterile compressing dressing was applied consisting of Adaptic, 4 x 4's, Willie, cast padding, and Josh. A well-padded posterior splint was then applied. Tourniquet was released. Prompt hyperemic response was noted to the left foot. The patient was awakened, extubated, and transferred to recovery room bed. She was transferred to recovery room in stable condition. The patient tolerated procedure and anesthesia well. Neurovascular status was intact to left foot, and transferred to PACU. She will remain nonweightbearing to the left lower extremity, and will be given Lovenox 30 mg to be injected subcutaneously once daily when discharged. Mirna Beach DPM JIP/rh , 07:04 AM , 07:16 AM [place]
== END 2018-05-19 23:59 | disposition home or self-care (01) ==
LOC: N06 23:52 → EDSTATUS 23:52
PROVIDERS: ADMIT Family Medicine; ATTEND Family Medicine
PROC: ORIFANK (2018-05-18 14:25)